=== PATIENT | female | born 1980 | race Two or more races ===

== ENCOUNTER 2024-06-30 06:30 | Day surgery (SDC) | payer BC, OTHER, SELFPAY ==
[2024-06-29 07:33] VITALS: BMI 29.5
--- NOTE | 2024-06-29 07:48 | EKG_ITS ---
[facility] Test Date: 2024-06-29 Pat Name: KIA MASON Department: Room: - Gender: Female [employer]: FORTUNATO : 1980 Requested By: Antonio Linder Order Number: [id number] Reading MD: Antonio Linder Measurements Intervals [place] Rate: 57 P: 50 MS: 132 QRS: 38 QRSD: 86 T: 35 QT: 438 QTc: 428 Interpretive Statements SINUS BRADYCARDIA No previous ECG available for comparison /store/[email or web address]/[id number]/[id number].pdf
[2024-06-29 08:56] LABS: Basophils % (Auto) 0 % (0-2.5); Eosinophils # (Auto) 0.1 Thou/mm3 (0.0-0.5); Eosinophils % (Auto) 1 % (0-10); Hematocrit 38.2 % (36.0-46.0); Hemoglobin 13.2 g/dL (12.0-16.0); Immature Granulocytes % (Auto) 0 % (0-0); Immature Granulocytes Auto 0.02 Thou/mm3 (0.00-0.00); Lymphocytes # (Auto) 1.2 Thou/mm3 (1.0-4.8); Lymphocytes % (Auto) 18 % (10-50); Mean Corpuscular HGB Conc 34.6 g/dl (31.0-37.0); Mean Corpuscular Hemoglobin 30.7 pg (25.0-35.0); Mean Corpuscular Volume 89 fL (80-100); Monocytes # (Auto) 0.4 Thou/mm3 (0.0-0.8); Monocytes % (Auto) 5 % (0-12); Neutrophils # (Auto) 5.2 Thou/mm3 (1.8-7.7); Neutrophils % (Auto) 75 % (37-80); Nucleated Red Blood Cell % 0 /100 WBC (0); Platelet Count 256 Thou/mm3 (140-440); RDW Standard Deviation 37.9 fL (36.4-46.3); White Blood Count 6.9 Thou/mm3 (3.6-11.0)
[2024-06-29 09:10] LABS: HCG,Qualitative Serum Negative
[2024-06-29 09:14] LABS: Alanine Aminotransferase 15 U/L (10-49); Albumin, Serum 4.3 gm/dL (3.5-5.0); Albumin/Globulin Ratio 1.5 (1.2-2.2); Alkaline Phosphatase 73 U/L (46-116); Anion Gap 8 (7-16); Aspartate Amino Transferase 22 U/L (0-34); BUN/Creatinine Ratio 10 Ratio (12-20); Bilirubin,Total 0.4 mg/dL (0.3-1.2); Blood Urea Nitrogen 8 mg/dL (9-23); Calcium 9.1 mg/dL (8.3-10.6); Calcium (Corrected) 9.1 mg/dL (8.5-10.1); Carbon Dioxide 24.1 mMol/L (20.0-31.0); Chloride 107 mMol/L (98-107); Creatinine (Component) 0.8 mg/dL (0.6-1.3); Estimated Creatinine Clearance 77.5 mL/min (>60); Globulin 2.8 gm/dL (2.3-3.5); Glucose 111 mg/dL (74-106); Osmolality,Calculated 276 (275-295); Potassium 3.4 mMol/L (3.4-5.1); Sodium 139 mMol/L (136-145); Total Protein 7.1 gm/dL (5.7-8.2); eGFR > 60 See Note
[2024-06-30] VITALS (8 sets, daily range): BP systolic 85–137; BP diastolic 56–77; PULSE 74–94; RESP 12–20; TEMP 36.3–36.8; O2SAT 94–100; BMI 29.5
[2024-06-30] MEDS: RINGERS LACTATED 1000 ML 1,000 ML 20 ML IV (07:01)
--- NOTE | 2024-06-30 09:47 | SUR.PHASEI ---
0947: Pt. wakes to name then drifts back to sleep, vitals stable, breathing unlabored, no signs of distress, dressing to right lower ABD CDI, no active bleed noted, report received from Joe BEE and Greg GIRON.
--- NOTE | 2024-06-30 09:59 | ESOP_ITS ---
Date of Procedure 06/30/24 Pre Op Diagnosis Right femoral hernia Post Op Diagnosis Right lower quadrant incisional hernia Procedure Repair of right lower quadrant incisional hernia with mesh Findings Patient was noted to have an approximately 4 cm incisional hernia on the right lateral aspect of her scar Procedure Description Patient brought into the operating room in supine position. After administration of general endotracheal anesthesia, patient's right groin prepped and draped in standard surgical manner. After administration of local anesthesia an approximately 4 cm incision was made on her right groin and dissection was deepened into soft tissue. The Alexis's fascia was divided. The inguinal ligament was identified. The area inferior to the inguinal ligament was explored and inspected. No evidence of any femoral hernia defect identified. Patient was noted to have weakness and bulging above the inguinal ligament. The external oblique aponeurosis was opened, patient was found to have some scarring from her previous . She was noted to have an incisional hernia on the lateral aspect of her scar. The hernia sac was reduced and the defect was closed with interrupted [id number] sutures using 0 Vicryl. Using ultra pro proceed mesh, the mesh was trimmed and placed over the transverse abdominis muscle. The mesh was secured circumferentially with 2-0 Prolene suture. The external oblique aponeurosis was closed over the mesh. Hemostasis was adequate and satisfactory. Alexis's fascia reapproximated with interrupted sutures using 2-0 Vicryl and incision was closed with 4-0 Monocryl in subcuticular fashion. Instruments, needles and sponge counts were reported to be correct x 2. Patient tolerated procedure well. She was extubated, breathing spontaneously and without difficulty and was transferred to postanesthesia care in stable condition. Instruments, needles and sponge counts were reported to be correct x 2. Anesthesia GETA and local Pathology / specimen None Estimated Blood Loss 5 Condition Stable Disposition PACU Surgeon Chris Mcginnis MD Surgical Staff Operation Date: 06/30/24 08:30 Case Staff WET PROCESS MILLER: Efrem Hahn RN First Assistant: Elyssa Waite
--- NOTE | 2024-06-30 10:50 | SUR.PHASEII ---
1050:Pt. AAOx4, vitals stable, breathing unlabored, no complaint of pain or nausea, dressing in place CDI, abd binder in place, pt. tolerated bites of ice chips well, pt. ambulated to wheelchair with steady gait and minimal assist, gave discharge instructions to the pt. and her ride using japanese interpreter Phyllis HERNANDEZ, both verbalized understanding and had no further questions. Pt. left with all personal belongings.
== END 2024-06-30 10:50 | disposition home or self-care (01) ==
PROVIDERS: Anesthesiology; PCP Family Medicine; Referring Provider Surgery; Visit Provider Surgery
PROC: (CPT 49550; principal; 2024-06-30 08:30)
DX: K41.90 Unilateral femoral hernia, without obstruction or gangrene, not specified as recurrent (principal); K43.2 Incisional hernia without obstruction or gangrene; Z01.810 Encounter for preprocedural cardiovascular examination; I10 Essential (primary) hypertension
CPT/HCPCS: 49550; 36415; 80048; 80053; 84703; 85025; 93005; A4649; C1781; J0131; J0690; J1885; J2250; J2704; J3010; J3490; J7120; J1596